=== PATIENT | female | born 1955 | race Caucasian/White ===

== ENCOUNTER 2018-11-08 14:10 | Emergency (ER) | payer OTHER ==
[~2018-11-08] VITALS: Ht 170.2 cm; Wt 72.6 kg
[2018-11-08] MEDS ORDERED: LISINOPRIL-HCT1 EAC2 (15:10)
== END 2018-11-08 22:10 | disposition home or self-care (01) ==
LOC: ER 14:10
DX: R10.84 Generalized abdominal pain (principal)